=== PATIENT | male | born 1985 | race Caucasian/White ===

== ENCOUNTER 2017-09-06 16:12 | Emergency (ER) | payer OTHER | END 2017-09-06 17:03 | disposition home or self-care (01) | LOC: FTE 16:12 | DX: F41.9 Anxiety disorder, unspecified (principal); J45.909 Unspecified asthma, uncomplicated | CPT/HCPCS: 99283 ==

== ENCOUNTER 2018-06-13 20:31 | Emergency (ER) | payer OTHER | END 2018-06-13 21:23 | disposition home or self-care (01) | LOC: E/R 20:31 | DX: S20.312A Abrasion of left front wall of thorax, initial encounter (principal); J45.909 Unspecified asthma, uncomplicated; X94.0XXA Assault by shotgun, initial encounter | CPT/HCPCS: 71045; 99283-25 ==

== ENCOUNTER 2018-06-14 23:35 | Emergency (ER) | payer OTHER ==
[2018-06-15] MEDS: LORAZEPAM 1 MG TAB PO (01:38)
== END 2018-06-15 02:37 | disposition home or self-care (01) ==
LOC: E/R 23:35
DX: F41.9 Anxiety disorder, unspecified (principal); R40.2142 Coma scale, eyes open, spontaneous, at arrival to emergency department; R40.2362 Coma scale, best motor response, obeys commands, at arrival to emergency department; R40.2252 Coma scale, best verbal response, oriented, at arrival to emergency department
CPT/HCPCS: 99283